=== PATIENT | female | born 1995 | race Caucasian/White ===

== ENCOUNTER 2016-08-09 21:24 | Emergency (ER) | payer SELFPAY ==
[~2016-08-09] VITALS: Ht 162.6 cm; Wt 97.0 kg
[~2016-08-09 21:24] MED LIST: IBUP600 PO; PERI8.6T PO; PREN0.01 PO
[2016-08-09 21:25] VITALS: BP 142/88; PULSE 94; RESP 18; TEMP 98.5; O2SAT 98
[2016-08-09] MEDS ORDERED: MUPI2%T TOPICAL (22:34)
--- NOTE | 2016-08-09 22:40 | PD ---
HPI Chief Complaint: Skin Problem Time Seen by Provider: 22:25 Travel History International Travel<30 days: No Contact w/Intl Traveler<30days: No Traveled to known affect area: No History of Present Illness HPI 21-year-old female presents for evaluation of a rash. Symptom onset June 23. She noticed some pruritic papular lesions on her left flank. She was seen at an outside facility and felt to have bug bites. She was then seen at an emergency room later on in the month and prescribed hydroxyzine as well as a steroid cream. The rash persisted and so she was seen on July 21 by a different primary care physician who prescribed her clindamycin and prednisone. The rash persisted and so she was prescribed a scabies cream. The rash persisted and she eventually followed up with a health and human performance professor last week to felt that it was not scabies and he performed a culture on 1 of the lesions. She is waiting to hear back on the culture results and she decided to come here to be evaluated because her son has now developed a rash over the past few days as well. The rash is itchy, primarily found on the torso and proximal extremities. She does note that in June her son started up with a new trolley car overhauler and the patient has been spitting a lot of time at the trolley car overhauler's house. She notes that there seems to be fleas and a lot of animals in his house. She otherwise denies any recent change in living conditions. No fevers or chills. No upper respiratory symptoms. No abdominal pain, nausea or vomiting. No other complaints. PFSH Past Medical History Cardiovascular Problems: Yes (HTN) ?: Not : 1 Para: 1 Past Surgical History Thoracic Surgery: Yes (back fusion) Social History Alcohol Use: No Tobacco Use: No Substance Use: No Allergies-Medications (Allergen,Severity, Reaction): Coded Allergies: No Known Allergies (Unverified , 10/27/14) Reported Meds & Prescriptions Reported Meds & Active Scripts Active Bactroban Topical (Mupirocin) 2 % Cream 1 Applic TOPICAL BID 10 Days Motrin 600 Mg Tab (Ibuprofen) 600 Mg Tab 600 Mg PO Q6H PRN Emy-Colace 8.6-50 mg (Sennosides-Docusate Sodium) 1 Tab Tab 2 Tab PO Q12H PRN Reported Vit ( Plus) (Prenat Multivit/Ellis/Iron/Folic Ac) Tab 1 Tab PO DAILY Review of Systems Except as stated in HPI: all other systems reviewed are Neg Physical Exam Narrative GENERAL: Well-developed well-nourished female in no acute distress SKIN: Warm and dry. She has scattered excoriated papular lesions on the back and proximal extremities and abdomen and chest wall. HEAD: Atraumatic. Normocephalic. EYES: Pupils equal and round. No scleral icterus. No injection or drainage. ENT: No nasal bleeding or discharge. Mucous membranes pink and moist. NECK: Trachea midline. No JVD. CARDIOVASCULAR: Regular rate and rhythm. No murmur appreciated. RESPIRATORY: No accessory muscle use. Clear to auscultation. Breath sounds equal bilaterally. GASTROINTESTINAL: Abdomen soft, non-tender, nondistended. Hepatic and splenic margins not palpable. Data Data Last Documented VS Vital Signs Date Time Temp Pulse Resp B/P Pulse Ox O2 Delivery O2 Flow Rate FiO2 08/09/16 21:25 98.5 94 18 142/88 98 Room Air [facility] Medical Decision Making Medical Screen Exam Complete: Yes Emergency Medical Condition: Yes Medical Record Reviewed: Yes Differential Diagnosis Fleas, bug bites, viral exanthem, contact dermatitis Narrative Course 21-year-old female with 1.5 months duration of pruritic rash. She has been seen several times at outside emergency rooms and outside primary care physician offices as well as most recently a health and human performance professor visit last week. She has been prescribed numerous medications including antibiotic creams, antihistamines, steroid creams, oral antibiotics and the rashes persisted. She had a wound culture performed last week. Recommended calling the health and human performance professor tomorrow for follow-up purposes. Based on her history I suspect that this may be an environmental issuesymptoms started shortly after she began spitting a lot of time at a house with many animals and she believes that the house is infested with fleas. The patient's son has not developed similar symptoms and has been spending a lot of time at this house as well. The plan at this time is to prescribe an antibiotic cream because most of the lesions are excoriated from scratching. Recommended [id number] antihistamines for itching. She is stable for discharge. Diagnosis Primary Impression: Pruritic rash Additional Instructions: Avoid scratching at the rash. Use [id number] Benadryl for itching as needed. Antibiotic cream as prescribed. Follow-up with your health and human performance professor tomorrow. As discussed, recommend having an cut off saw tender metal evaluate the house for infestation. Return for any emergent medical conditions. Med/Other Pt SpecificInfo: Prescription(s) given Scripts Mupirocin Topical (Bactroban Topical)2 % Cream1 Applic TOPICAL BID 10 Days Ref 0 Prov:Pj Armendariz MD 08/09/16 Disposition: 01 DISCHARGE HOME Condition: Stable Selwyn Lobo Aug 09, 2016 22:39
== END 2016-08-09 23:52 | disposition home or self-care (01) ==
LOC: NEPK 21:24
DX: R21 Rash and other nonspecific skin eruption (principal); L29.9 Pruritus, unspecified; I10 Essential (primary) hypertension
CPT/HCPCS: 99282